=== PATIENT | male | born 1940 | race Hispanic/Latino ===

== ENCOUNTER 2018-05-29 12:19 | Inpatient (IN) | payer MEDICARE, OTHER ==
[2018-05-29 12:21] VITALS: BMI 27.3
[2018-05-29] MEDS ORDERED: Iodixanol 320 MG/ML 100 ML BOTTLE IV ONE (12:32)
--- NOTE | 2018-05-29 12:32 | ED PDOC ---
HPI:STROKE - Time Time: 12:30 - Historian Historian: EMS - Chief Complaint Chief Complaint: Weakness, Facial droop - Onset Date: 05/29/18 - TPA Positive for Contraindication: Yes Reason tPA is not being Administered: vague symptoms and resolved; Neurologist evaluated. - Notes: Notes:: 78 y/o male with a PMHx of a left sided CVA brought in by EMS for evaluation of a possible stroke. EMS report patient was at home when family noticed patient had developed a right sided facial droop associated with right sided weakness and slurred speach about 20 minutes prior to arrival. As per EMS who obtained information from state patient was last known well at baseline at 10 o'clock. At baseline, patient had normal speech. Otherwise, patient denies headache, nausea, dizziness, pain and any other associated symptoms. Additionally, vomitus noted to have been found by bedhead as per EMS. PMD: none provided NIHSS Stroke Scale - Date/Time Evaluation Performed Date Performed: 05/29/18 Time Performed: 12:30 When Was NIHSS Performed: Baseline - How Severe is the Stroke Level of Consciousness: 0=Alert LOC to Questions: 0=Both comments correct LOC to commands: 0=Obeys both correctly Best Gaze: 0=Normal Visual: 0=No visual loss Facial: 1=Minor asymmetry Motor Arm - Left: 1=Drift noted before 10 sec Motor Arm - Right: 1=Drift noted before 10 sec Motor Leg - Left: 2=Falls before 5 sec Motor Leg - Right: 2=Falls before 5 sec Limb Ataxia: 2=Present both Sensory: 0=Normal Best Language: 0=No aphasia Dysarthia: 1=Mild to moderate slurring Extinction & Inattention (Neglect): 0=Normal, no object Score: 10 rTPA Inclusion/Exclusion - Refusal of Treatment Patient Refused Treatment: No - Inclusion Criteria for Altepase Patient is 18 years or Older: Yes The Clinical Diagnosis of Ischemic Stroke That is Causing a Potentially Disabling Neurological Deficit: No Time of Onset is Well Established to be Less Than 270 Minute Before Treatment Would Begin: Yes Risk/Benefit Discussed With Patient/Family Member Present: No Past Medical History Reviewed: Nursing Documentation, Vital Signs Vital Signs: Last Vital Signs Temp 97.4 F L 05/29/18 12:21 Pulse 98 H 05/29/18 12:21 Resp 18 05/29/18 12:21 BP 101/50 L 05/29/18 12:21 Pulse Ox 100 05/29/18 12:21 - Medical History PMH: CAD, CVA, Diabetes, Gastritis, HTN, Hypercholesterolemia, Mitral Valve Prolapse, Parkinson's Disease, TIA Denies: Arthritis, CHF, COPD, HIV, Hypothyroidism, Chronic Kidney Disease, Rheumatoid Arthritis - Surgical History Surgical History: Appendectomy, Coronary Stent - Family History Family History: States: Unknown Family Hx - Home Medications Home Medications: Ambulatory Orders Medication Instructions Recorded Amoxicillin/Clavulanate [Augmentin 1 tab PO Q12 05/29/18 875 MG-125 MG Tab] Aspirin [Ecotrin] 81 mg PO DAILY 05/29/18 Atorvastatin Calcium [Lipitor] 80 mg PO HS 05/29/18 Benzonatate [Tessalon Perle] 100 mg PO Q8 PRN 05/29/18 Clopidogrel [Plavix] 75 mg PO DAILY 05/29/18 Ergocalciferol (Vitamin D2) 50,000 unit PO FR 05/29/18 [Vitamin D2] Famotidine [Pepcid] 20 mg PO DAILY 05/29/18 Lactulose [Generlac] 30 ml PO DAILY 05/29/18 Linaclotide [Linzess] 145 mcg PO DAILY 05/29/18 Metoprolol Succinate XL [Toprol XL] 50 mg PO Q12 05/29/18 Mirtazapine [Remeron] 15 mg PO HS 05/29/18 Ondansetron HCl [Zofran] 4 mg PO Q8 PRN 05/29/18 Tamsulosin [Flomax] 0.4 mg PO DAILY 05/29/18 - Allergies Allergies/Adverse Reactions: Allergies Allergy/AdvReac Type Severity Reaction Status Date / Time No Known Allergies Allergy Verified 05/29/18 12:21 Review of Systems ROS Statement: Except As Marked, All Systems Reviewed And Found Negative Neurological: Positive for: Weakness (RIGHT SIDED), Change in Speech, Other (RIGHT SIDED FACIAL DROOP) Physical Exam - Reviewed Nursing Documentation Reviewed: Yes Vital Signs Reviewed: Yes - Physical Exam Appears: Positive for: In Acute Distress Head Exam: Positive for: ATRAUMATIC, NORMOCEPHALIC Skin: Positive for: Normal Color, Warm, Dry Eye Exam: Positive for: Normal appearance, EOMI, PERRL ENT: Positive for: Normal ENT Inspection Neck: Positive for: Normal, Painless ROM, Supple Cardiovascular/Chest: Positive for: Regular Rate, Rhythm. Negative for: Murmur Respiratory: Positive for: Normal Breath Sounds. Negative for: Respiratory D istress Gastrointestinal/Abdominal: Positive for: Normal Exam, Soft. Negative for: Tenderness Back: Positive for: Normal Inspection. Negative for: L CVA Tenderness, R CVA Tenderness Extremity: Positive for: Normal ROM (Constricted at onset but able to move all extremities. ). Negative for: Tenderness, Pedal Edema, Deformity Neurological/Psych: Positive for: Awake, Alert, Normal Tone, Symmetric/Intact Strength (Strength in the Upper Extremities: 3/5 bilaterally, Strength in the Lower Extremity: 1/5 bilaterally), Oriented, bill of lading clerk II-XII (? droop right lower), Other (questionable change in speech. ). Negative for: Lethargic - Laboratory Results Result Diagrams: 05/29/18 12:54 05/29/18 12:54 Lab Results: no acute - ECG ECG: Positive for: Interpreted By Me, Viewed By Me ECG Rhythm: Positive for: Normal QRS, Normal ST Segment, Sinus Rhythm O2 Sat by Pulse Oximetry: 100 (RA) Pulse Ox Interpretation: Normal - Radiology X-Ray: Read By Radiologist X-Ray Interpretation: No Acute Disease - Progress ED Course And Treament: 1507: Spoke with Dr. Babb. Will admit. Medical Decision Making Medical Decision Making: Time: 1220 -- Code Stroke Activated overhead Time: 1226 Plan: -- Type and Screen -- CTA Head/Neck Code Stroke -- CT Head w/o Contrast (CODE STROKE) -- EKG -- CMP -- Hemoglobin A1C -- Lipid Panel -- Troponin I -- Stroke Team Consult -- CBC with Differentials -- PTT -- Prothrombin Time -- CXR Portable -- Sodium Chloride IV 100 mls/hr -- Senior Data Warehouse Developer -- IV Insertion -- Call Stroke Team Consult PRN -- ED Obtain Labs STAT -- Glucose, Blood, POC STAT -- Nurisng Swallow Screen STAT -- Vital Signs Q15MIN Time: 1228 -- Neurology here and aware of case. Time: 1236 PROCEDURE: CT HEAD WITHOUT CONTRAST. HISTORY: code stroke COMPARISON: Comparison made with prior MRI and CT scan brain dated 11/17/2014 and 02/20/2015 respectively... Correlation also made with concurrent CTA brain as well as prior MRI of the brain dated 11/17/2014. TECHNIQUE: Axial computed tomography images were obtained through the head/brain without intravenous contrast. Radiation dose: Total exam DLP = 1202.6 mGy-cm. This CT exam was performed using one or more of the following dose reduction techniques: Automated exposure control, adjustment of the mA and/or kV according to patient size, and/or use of iterative reconstruction technique. FINDINGS: HEMORRHAGE: No acute parenchymal, subarachnoid nor extra-axial hemorrhage. BRAIN: Moderate to fairly significant diffuse and confluent chronic periventricular white matter ischemic changes seen extending peripherally into the deep and subcortical white matter both cerebral hemispheres. There is also some extension of these changes into the white matter tracts of both basal nuclei. Scattered chronic bilateral basal nuclei lacunar type infarcts also felt be present. Note that the possibility of a small hyperacute infarct cannot be excluded on this exam. Redemonstrated is a soft tissue mass which is located in the sella turcica and has caused expansile changes of the surrounding bone. This lesion measures approximately 14 mm x 13 mm x 11.5 mm and most likely represents a pituitary adenoma.... Lesion is seen to better advantage on prior MRI brain Moderate to fairly significant central volume loss evidenced by disproportionate enlargement of the ventricles as compared sulci. Vascular calcifications both carotid siphons. VENTRICLES: No obstructive hydrocephalus CALVARIUM: Calvarium intact. PARANASAL SINUSES: Unremarkable as visualized. No significant inflammatory changes. MASTOID AIR CELLS: Unremarkable as visualized. No inflammatory changes. OTHER FINDINGS: None. IMPRESSION: Acute intracranial hemorrhage. Moderate to fairly significant diffuse and confluent chronic periventricular white matter ischemic changes seen extending peripherally into the deep and subcortical white matter both cerebral hemispheres. There is also some extension of these changes into the white matter tracts of both basal nuclei. Scattered chronic bilateral basal nuclei lacunar type infarcts also felt be present. Note that the possibility of a small hyperacute infarct cannot be excluded on this exam. Moderate to fairly significant central volume loss evidenced by disproportionate enlargement of the ventricles as compared sulci. Redemonstrated is a soft tissue mass density within the sella turcica consistent with a pituitary adenoma and seen to better advantage on MRI of the brain Findings discussed with Dr. Ochoa at 12:35 p.m. with written down and read back verification. Time: 1300 CTA RESULTS PROCEDURE: CT Angiography of the neck and brain HISTORY: Stroke evaluation COMPARISON: Comparison made with concurrent noncontrast CT scan TECHNIQUE: Contiguous axial images of the neck and brain were obtained from the level of the vertex of the skull to the superior mediastinum in the arteriographic phase of enhancement. Coronal and sagittal reformats or also generated. IV contrast dose: 99 cc Visipaque 320 contrast material. Radiation dose: Total exam DLP = 554.34 mGy-cm. This CT exam was performed using one or more of the following dose reduction techniques: Automated exposure control, adjustment of the mA and/or kV according to patient size, and/or use of iterative reconstruction technique. FINDINGS: Brain The aortic arch exhibits mild calcified atherosclerotic plaque though is otherwise widely patent. Similar calcified plaque changes are present at the origins of the great vessels although also patent. Common carotid arteries are patent throughout. Some very minor crescentic shaped calcifications seen at both carotid bifurcations without significant without evidence of occlusion or significant stenosis. No evidence of dissection The distal internal carotid arteries including the petrous, cavernous and supraclinoid segments are also patent however calcified plaque changes are patent although there are calcified plaque changes seen at the level of both cavernous and supraclinoid carotid arteries. The vertebral arteries are patent throughout left-sided which is much than the larger in caliber/more dominant than the right-sided. The right vertebral artery terminates in a right-sided posterior inferior cerebellar artery (PICA). The major branches of the [id number] are also patent with no evidence of large aneurysm nor vascular malformation. The mid to distal branches of the anterior middle and posterior cerebral ar teries and appear relatively symmetric. No evidence of vascular malformation. OTHER FINDINGS: Again noted is a presumed pituitary adenoma with associated expansile changes of the sella turcica IMPRESSION: No evidence of dissection or occlusion. Minor calcified plaque seen at the origins of the great vessels as well as both carotid bifurcations with no significant stenosis. There also calcified atherosclerotic plaque changes seen along right and left cavernous and supraclinoid segments of the internal carotid arteries. No evidence of occlusion of the visualized cerebral vasculature. Dominant left vertebral artery with hypoplastic right vertebral artery terminating in a right-sided PICA as above Time: 1331 CXR RESULTS HISTORY: Code Stroke COMPARISON: Comparison chest dated 02/21/2015 FINDINGS: LUNGS: Minor bibasilar atelectasis PLEURA: No significant pleural effusion identified, no pneumothorax apparent. CARDIOVASCULAR: Mild aortic atherosclerotic calcification present. Heart appears mildly enlarged. No pulmonary vascular congestion. OSSEOUS STRUCTURES: No significant abnormalities. VISUALIZED UPPER ABDOMEN: Normal. OTHER FINDINGS: None IMPRESSION: Minor bibasilar atelectasis Scribe Attestation: Documented by Gretta Simental, acting as a scribe forCan Ochoa MD. Provider Scribe Attestation: All medical record entries made by the Scribe were at my direction and personally dictated by me. I have reviewed the chart and agree that the record accurately reflects my personal performance of the history, physical exam, medical decision making, and the department course for this patient. I have also personally directed, reviewed, and agree with the discharge instructions and disposition. 1245: Dr. Wood saw pt. and reviewed case. No thrombolytics. Wants ASA and admit for CVA work up. AAOx3. Moving all extremities. Disposition - Clinical Impression Clinical Impression: CVA (cerebral vascular accident) - Patient ED Disposition Is Patient to be Admitted: Yes Counseled Patient/Family Regarding: Studies Performed, Diagnosis - Disposition Disposition Time: 13:00 Condition: FAIR - Pt Status Changed To: Hospital Disposition Of: Inpatient - Admit Certification Admit to Inpatient:: After my assessment, the patient will require hospitalization for at least two midnights. This is because of the severity of symptoms shown, intensity of services needed, and/or the medical risk in this patient being treated as an outpatient.
--- NOTE | 2018-05-29 12:47 | CT ---
Date of service: 05/29/2018 PROCEDURE: CT HEAD WITHOUT CONTRAST. HISTORY: code stroke COMPARISON: Comparison made with prior MRI and CT scan brain dated 11/17/2014 and 02/20/2015 respectively... Correlation also made with concurrent CTA brain as well as prior MRI of the brain dated 11/17/2014. TECHNIQUE: Axial computed tomography images were obtained through the head/brain without intravenous contrast. Radiation dose: Total exam DLP = 1202.6 mGy-cm. This CT exam was performed using one or more of the following dose reduction techniques: Automated exposure control, adjustment of the mA and/or kV according to patient size, and/or use of iterative reconstruction technique. FINDINGS: HEMORRHAGE: No acute parenchymal, subarachnoid nor extra-axial hemorrhage. BRAIN: Moderate to fairly significant diffuse and confluent chronic periventricular white matter ischemic changes seen extending peripherally into the deep and subcortical white matter both cerebral hemispheres. There is also some extension of these changes into the white matter tracts of both basal nuclei. Scattered chronic bilateral basal nuclei lacunar type infarcts also felt be present. Note that the possibility of a small hyperacute infarct cannot be excluded on this exam. Redemonstrated is a soft tissue mass which is located in the sella turcica and has caused expansile changes of the surrounding bone. This lesion measures approximately 14 mm x 13 mm x 11.5 mm and most likely represents a pituitary adenoma.... Lesion is seen to better advantage on prior MRI brain Moderate to fairly significant central volume loss evidenced by disproportionate enlargement of the ventricles as compared sulci. Vascular calcifications both carotid siphons. VENTRICLES: No obstructive hydrocephalus CALVARIUM: Calvarium intact. PARANASAL SINUSES: Unremarkable as visualized. No significant inflammatory changes. MASTOID AIR CELLS: Unremarkable as visualized. No inflammatory changes. OTHER FINDINGS: None. IMPRESSION: Acute intracranial hemorrhage. Moderate to fairly significant diffuse and confluent chronic periventricular white matter ischemic changes seen extending peripherally into the deep and subcortical white matter both cerebral hemispheres. There is also some extension of these changes into the white matter tracts of both basal nuclei. Scattered chronic bilateral basal nuclei lacunar type infarcts also felt be present. Note that the possibility of a small hyperacute infarct cannot be excluded on this exam. Moderate to fairly significant central volume loss evidenced by disproportionate enlargement of the ventricles as compared sulci. Redemonstrated is a soft tissue mass density within the sella turcica consistent with a pituitary adenoma and seen to better advantage on MRI of the brain Findings discussed with Dr. Ochoa at 12:35 p.m. with written down and read back verification.
--- NOTE | 2018-05-29 13:04 | CT ---
Date of service: 05/29/2018 PROCEDURE: CT Angiography of the neck and brain HISTORY: Stroke evaluation COMPARISON: Comparison made with concurrent noncontrast CT scan TECHNIQUE: Contiguous axial images of the neck and brain were obtained from the level of the vertex of the skull to the superior mediastinum in the arteriographic phase of enhancement. Coronal and sagittal reformats or also generated. IV contrast dose: 99 cc Visipaque 320 contrast material. Radiation dose: Total exam DLP = 554.34 mGy-cm. This CT exam was performed using one or more of the following dose reduction techniques: Automated exposure control, adjustment of the mA and/or kV according to patient size, and/or use of iterative reconstruction technique. FINDINGS: Brain The aortic arch exhibits mild calcified atherosclerotic plaque though is otherwise widely patent. Similar calcified plaque changes are present at the origins of the great vessels although also patent. Common carotid arteries are patent throughout. Some very minor crescentic shaped calcifications seen at both carotid bifurcations without significant without evidence of occlusion or significant stenosis. No evidence of dissection The distal internal carotid arteries including the petrous, cavernous and supraclinoid segments are also patent however calcified plaque changes are patent although there are calcified plaque changes seen at the level of both cavernous and supraclinoid carotid arteries. The vertebral arteries are patent throughout left-sided which is much than the larger in caliber/more dominant than the right-sided. The right vertebral artery terminates in a right-sided posterior inferior cerebellar artery (PICA). The major branches of the [id number] are also patent with no evidence of large aneurysm nor vascular malformation. The mid to distal branches of the anterior middle and posterior cerebral arteries and appear relatively symmetric. No evidence of vascular malformation. OTHER FINDINGS: Again noted is a presumed pituitary adenoma with associated expansile changes of the sella turcica IMPRESSION: No evidence of dissection or occlusion. Minor calcified plaque seen at the origins of the great vessels as well as both carotid bifurcations with no significant stenosis. There also calcified atherosclerotic plaque changes seen along right and left cavernous and supraclinoid segments of the internal carotid arteries. No evidence of occlusion of the visualized cerebral vasculature. Dominant left vertebral artery with hypoplastic right vertebral artery terminating in a right-sided PICA as above
[2018-05-29 13:07] LABS: BASO % 0.4 % (0.0-2.0); EOS # 0.2 K/uL (0.0-0.7); HEMOGLOBIN 11.3 g/dL (12.0-18.0); LYMPH # 1.2 K/uL (1.0-4.3); LYMPH % 24.5 % (20.0-40.0); MEAN CELL VOLUME 91.6 fl (80.0-94.0); MEAN CORPUSCULAR HEMOGLOBIN 30.7 pg (27.0-31.0); MEAN CORPUSCULAR HGB CONC 33.5 g/dL (33.0-37.0); MEAN PLATELET VOLUME 8.4 fl (7.2-11.7); MONO # 0.3 K/uL (0.0-0.8); MONO % 6.9 % (0.0-10.0); NEUT # 3.1 K/uL (1.8-7.0); NEUT % 63.2 % (50.0-75.0); NRBC % 0.1 % (0.0-0.0); RBC 3.7 Mil/uL (4.40-5.90); RED CELL DISTRIBUTION WIDTH 13.6 % (11.5-14.5); WHITE BLOOD COUNT 4.9 K/uL (4.8-10.8)
[2018-05-29 13:15] LABS: ALB/GLOB RATIO 0.9 (1.0-2.1); ALBUMIN 3.2 g/dL (3.5-5.0); ALT/SGPT 14 U/L (21-72); AST/SGOT 19 U/L (17-59); BLOOD UREA NITROGEN 15 mg/dl (9-20); CALCIUM 8.8 mg/dL (8.4-10.2); GFR NON-AFRICAN AMERICAN > 60; HDL CHOLESTEROL 26 MG/DL (30-70)
[2018-05-29 13:23] LABS: PROTHROMBIN TIME 11.3 Seconds (9.8-13.1)
[2018-05-29] MEDS: Sodium Chloride 0.9% 1,000 ML IV SCH (13:23)
[2018-05-29 13:25] LABS: LDL CHOLESTEROL 53 mg/dL (0-129)
--- NOTE | 2018-05-29 13:25 | CP.PCM.CON ---
History of Present Illness - History of Present Illness History of Present Illness: Neurology consult dictated. Patient is not a TPA candidate because his deficits resolved, and his NIH is now 1. Plan: 1. MRI Brain without contrast 2. aspirin and plavix. 3. IV normal saline 4. Neuro checks. 5. Admit to telemetry 6. PT ST OT DR. mccartney Neurology Past Patient History - Infectious Disease Hx of Infectious Diseases: None - Past Medical History & Family History Past Medical History?: Yes - Past Social History Smoking Status: Former Smoker - CARDIAC Hx Congestive Heart Failure: No Hx Hypercholesterolemia: Yes Hx Hypertension: Yes Hx Mitral Valve Prolapse: Yes - PULMONARY Hx Chronic Obstructive Pulmonary Disease (COPD): No - NEUROLOGICAL Hx Parkinson's Disease: Yes Hx Transient Ischemic Attacks (TIA): Yes - HEENT Hx HEENT Problems: No - RENAL Hx Chronic Kidney Disease: No - ENDOCRINE/METABOLIC Hx Hypothyroidism: No - HEMATOLOGICAL/ONCOLOGICAL Hx Human Immunodeficiency Virus (HIV): No - INTEGUMENTARY Hx Dermatological Problems: No - MUSCULOSKELETAL/RHEUMATOLOGICAL Hx Arthritis: No Hx Rheumatoid Arthritis: No - GASTROINTESTINAL Hx Gastritis: Yes - GENITOURINARY/GYNECOLOGICAL Hx Genitourinary Disorders: No - PSYCHIATRIC Hx Emotional Abuse: No Hx Physical Abuse: No Hx Substance Use: No - SURGICAL HISTORY Hx Appendectomy: Yes Hx Coronary Stent: Yes - ANESTHESIA Hx Anesthesia: Yes Hx Anesthesia Reactions: No Meds Allergies/Adverse Reactions: Allergies Allergy/AdvReac Type Severity Reaction Status Date / Time No Known Allergies Allergy Verified 05/29/18 12:21 - Medications Medications: Current Medications Sodium Chloride (Sodium Chloride 0.9%) 1,000 mls @ 100 mls/hr IV .Q10H TONY Last Admin: 05/29/18 13:23 Dose: 100 mls/hr Results - Vital Signs Recent Vital Signs: Last Vital Signs Temp 97.4 F L 05/29/18 12:21 Pulse 98 H 05/29/18 12:21 Resp 18 05/29/18 12:21 BP 101/50 L 05/29/18 12:21 Pulse Ox 100 05/29/18 12:45 - Labs Result Diagrams: 05/29/18 12:54 05/29/18 12:54 Labs: Laboratory Results - last 24 hr 05/29/18 05/29/18 05/29/18 12:54 12:54 12:54 WBC 4.9 RBC 3.70 L Hgb 11.3 L Hct 33.9 L MCV 91.6 MCH 30.7 MCHC 33.5 RDW 13.6 Plt Count 167 D MPV 8.4 Neut % (Auto) 63.2 Lymph % (Auto) 24.5 Haakon % (Auto) 6.9 Eos % (Auto) 5.0 H Baso % (Auto) 0.4 Neut # (Auto) 3.1 Lymph # (Auto) 1.2 Haakon # (Auto) 0.3 Eos # (Auto) 0.2 Baso # (Auto) 0.0 PT 11.3 INR 1.0 Sodium 142 Potassium 4.7 Chloride 105 Carbon Dioxide 30 Anion Gap 12 BUN 15 Creatinine 1.0 Est GFR ( Amer) > 60 Est GFR (Non-Af Amer) > 60 Random Glucose 124 H Calcium 8.8 Total Bilirubin 0.5 AST 19 ALT 14 L D Alkaline Phosphatase 60 Total Protein 6.5 Albumin 3.2 L D Globulin 3.3 Albumin/Globulin Ratio 0.9 L Triglycerides 132 D Cholesterol 105 HDL Cholesterol 26 L BBK History Checked 05/29/18 12:54 WBC RBC Hgb Hct MCV MCH MCHC RDW Plt Count MPV Neut % (Auto) Lymph % (Auto) Haakon % (Auto) Eos % (Auto) Baso % (Auto) Neut # (Auto) Lymph # (Auto) Haakon # (Auto) Eos # (Auto) Baso # (Auto) PT INR Sodium Potassium Chloride Carbon Dioxide Anion Gap BUN Creatinine Est GFR ( Amer) Est GFR (Non-Af Amer) Random Glucose Calcium Total Bilirubin AST ALT Alkaline Phosphatase Total Protein Albumin Globulin Albumin/Globulin Ratio Triglycerides Cholesterol HDL Cholesterol BBK History Checked No verified bt
--- NOTE | 2018-05-29 13:35 | RAD ---
Date of service: 05/29/2018 HISTORY: Code Stroke COMPARISON: Comparison chest dated 02/21/2015 FINDINGS: LUNGS: Minor bibasilar atelectasis PLEURA: No significant pleural effusion identified, no pneumothorax apparent. CARDIOVASCULAR: Mild aortic atherosclerotic calcification present. Heart appears mildly enlarged. No pulmonary vascular congestion. OSSEOUS STRUCTURES: No significant abnormalities. VISUALIZED UPPER ABDOMEN: Normal. OTHER FINDINGS: None IMPRESSION: Minor bibasilar atelectasis
--- NOTE | 2018-05-29 16:16 | CP.PCM.HP ---
History of Present Illness - History of Present Illness History of Present Illness: CC: Right Facial droop History of present illness A 78 y/o male with a PMHx of a left sided CVA brought in by EMS for evaluation of a possible stroke. EMS report patient was at home when family noticed patient had developed a right sided facial droop associated with right sided weakness and slurred speach about 20 minutes prior to arrival. As per EMS who obtained information from state patient was last known well at baseline at 10 o'clock. At baseline, patient had normal speech. Otherwise, patient denies headache, nausea, dizziness, pain and any other associated symptoms. Additionally, vomit noted to have been found by bedhead as per EMS. Neurologist evaluated the patient in the ER and recommended admission, treatment and workup for stroke with MRI brain. Present on Admission - Present on Admission Any Indicators Present on Admission: No Review of Systems - Review of Systems All systems: reviewed and no additional remarkable complaints except Review of Systems: as per HPI Past Patient History - Infectious Disease Hx of Infectious Diseases: None - Past Medical History & Family History Past Medical History?: Yes Past Family History: Reviewed and not pertinent - Past Social History Smoking Status: Former Smoker Alcohol: None Drugs: Denies - CARDIAC Hx Congestive Heart Failure: No Hx Hypercholesterolemia: Yes Hx Hypertension: Yes Hx Mitral Valve Prolapse: Yes - PULMONARY Hx Chronic Obstructive Pulmonary Disease (COPD): No - NEUROLOGICAL Hx Parkinson's Disease: Yes Hx Transient Ischemic Attacks (TIA): Yes - HEENT Hx HEENT Problems: No - RENAL Hx Chronic Kidney Disease: No - ENDOCRINE/METABOLIC Hx Hypothyroidism: No - HEMATOLOGICAL/ONCOLOGICAL Hx Human Immunodeficiency Virus (HIV): No - INTEGUMENTARY Hx Dermatological Problems: No - MUSCULOSKELETAL/RHEUMATOLOGICAL Hx Arthritis: No Hx Rheumatoid Arthritis: No - GASTROINTESTINAL Hx Gastritis: Yes - GENITOURINARY/GYNECOLOGICAL Hx Genitourinary Disorders: No - PSYCHIATRIC Hx Emotional Abuse: No Hx Physical Abuse: No Hx Substance Use: No - SURGICAL HISTORY Hx Appendectomy: Yes Hx Coronary Stent: Yes - ANESTHESIA Hx Anesthesia: Yes Hx Anesthesia Reactions: No Meds Allergies/Adverse Reactions: Allergies Allergy/AdvReac Type Severity Reaction Status Date / Time No Known Allergies Allergy Verified 05/29/18 12:21 Physical Exam - Constitutional Appears: Well, No Acute Distress - Head Exam Head Exam: ATRAUMATIC, NORMAL INSPECTION, NORMOCEPHALIC - Eye Exam Eye Exam: EOMI, Normal appearance, PERRL Pupil Exam: NORMAL ACCOMODATION, PERRL - ENT Exam ENT Exam: Mucous Membranes Moist, Normal Exam - Neck Exam Neck exam: Positive for: Normal Inspection - Respiratory Exam Respiratory Exam: Clear to Auscultation Bilateral, NORMAL BREATHING PATTERN - Cardiovascular Exam Cardiovascular Exam: REGULAR RHYTHM, +S1, +S2 - GI/Abdominal Exam GI & Abdominal Exam: Normal Bowel Sounds, Soft. absent: Tenderness - Extremities Exam Extremities exam: Positive for: normal capillary refill (Known cervical), normal inspection - Back Exam Back exam: NORMAL INSPECTION - Neurological Exam Neurological exam: Alert, CN II-XII Intact, Normal Gait, Oriented x3, Reflexes Normal - Psychiatric Exam Psychiatric exam: Normal Affect, Normal Mood - Skin Skin Exam: Dry, Intact, Normal Color, Warm Results - Vital Signs Recent Vital Signs: Last Vital Signs Temp 97.4 F L 05/29/18 12:21 Pulse 73 05/29/18 14:50 Resp 18 05/29/18 14:50 BP 143/78 05/29/18 14:50 Pulse Ox 100 05/29/18 15:07 - Labs Result Diagrams: 05/29/18 12:54 05/29/18 12:54 Labs: Laboratory Results - last 24 hr 05/29/18 05/29/18 05/29/18 12:54 12:54 12:54 WBC 4.9 RBC 3.70 L Hgb 11.3 L Hct 33.9 L MCV 91.6 MCH 30.7 MCHC 33.5 RDW 13.6 Plt Count 167 D MPV 8.4 Neut % (Auto) 63.2 Lymph % (Auto) 24.5 [place] % (Auto) 6.9 Eos % (Auto) 5.0 H Baso % (Auto) 0.4 Neut # (Auto) 3.1 Lymph # (Auto) 1.2 [place] # (Auto) 0.3 Eos # (Auto) 0.2 Baso # (Auto) 0.0 PT 11.3 INR 1.0 APTT 33.0 Sodium 142 Potassium 4.7 Chloride 105 Carbon Dioxide 30 Anion Gap 12 BUN 15 Creatinine 1.0 Est GFR ( Amer) > 60 Est GFR (Non-Af Amer) > 60 Random Glucose 124 H Calcium 8.8 Total Bilirubin 0.5 AST 19 ALT 14 L D Alkaline Phosphatase 60 Troponin I < 0.0120 Total Protein 6.5 Albumin 3.2 L D Globulin 3.3 Albumin/Globulin Ratio 0.9 L Triglycerides 132 D Cholesterol 105 LDL Cholesterol Direct 53 HDL Cholesterol 26 L Blood Type Blood Type Confirm Antibody Screen BBK History Checked 05/29/18 05/29/18 12:54 13:40 WBC RBC Hgb Hct MCV MCH MCHC RDW Plt Count MPV Neut % (Auto) Lymph % (Auto) [place] % (Auto) Eos % (Auto) Baso % (Auto) Neut # (Auto) Lymph # (Auto) [place] # (Auto) Eos # (Auto) Baso # (Auto) PT INR APTT Sodium Potassium Chloride Carbon Dioxide Anion Gap BUN Creatinine Est GFR ( Amer) Est GFR (Non-Af Amer) Random Glucose Calcium Total Bilirubin AST ALT Alkaline Phosphatase Troponin I Total Protein Albumin Globulin Albumin/Globulin Ratio Triglycerides Cholesterol LDL Cholesterol Direct HDL Cholesterol Blood Type A POSITIVE Blood Type Confirm A POSITIVE Antibody Screen Negative BBK History Checked No verified bt - Imaging and Cardiology CT scan - head Status: Report reviewed by me Additional comment: Date of service: 05/29/2018 PROCEDURE: CT HEAD WITHOUT CONTRAST. HISTORY: code stroke COMPARISON: Comparison made with prior MRI and CT scan brain dated 11/17/2014 and 02/20/2015 respectively... Correlation also made with concurrent CTA brain as well as prior MRI of the brain dated 11/17/2014. TECHNIQUE: Axial computed tomography images were obtained through the head/brain without intravenous contrast. Radiation dose: Total exam DLP = 1202.6 mGy-cm. This CT exam was performed using one or more of the following dose reduction techniques: Automated exposure control, adjustment of the mA and/or kV according to patient size, and/or use of iterative reconstruction technique. FINDINGS: HEMORRHAGE: No acute parenchymal, subarachnoid nor extra-axial hemorrhage. BRAIN: Moderate to fairly significant diffuse and confluent chronic periventricular wh ite matter ischemic changes seen extending peripherally into the deep and subcortical white matter both cerebral hemispheres. There is also some extension of these changes into the white matter tracts of both basal nuclei. Scattered chronic bilateral basal nuclei lacunar type infarcts also felt be present. Note that the possibility of a small hyperacute infarct cannot be excluded on this exam. Redemonstrated is a soft tissue mass which is located in the sella turcica and has caused expansile changes of the surrounding bone. This lesion measures approximately 14 mm x 13 mm x 11.5 mm and most likely represents a pituitary adenoma.... Lesion is seen to better advantage on prior MRI brain Moderate to fairly significant central volume loss evidenced by disproportionate enlargement of the ventricles as compared sulci. Vascular calcifications both carotid siphons. VENTRICLES: No obstructive hydrocephalus CALVARIUM: Calvarium intact. PARANASAL SINUSES: Unremarkable as visualized. No significant inflammatory changes. MASTOID AIR CELLS: Unremarkable as visualized. No inflammatory changes. OTHER FINDINGS: None. IMPRESSION: Acute intracranial hemorrhage. Moderate to fairly significant diffuse and confluent chronic periventricular white matter ischemic changes seen extending peripherally into the deep and subcortical white matter both cerebral hemispheres. There is also some extension of these changes into the white matter tracts of both basal nuclei. Scattered chronic bilateral basal nuclei lacunar type infarcts also felt be present. Note that the possibility of a small hyperacute infarct cannot be excluded on this exam. Moderate to fairly significant central volume loss evidenced by disproportionate enlargement of the ventricles as compared sulci. Redemonstrated is a soft tissue mass density within the sella turcica consistent with a pituitary adenoma and seen to better advantage on MRI of the brain CT Angio and Neck: Status: Report reviewed by me Additional comment: Date of service: 05/29/2018 PROCEDURE: CT Angiography of the neck and brain HISTORY: Stroke evaluation COMPARISON: Comparison made with concurrent noncontrast CT scan TECHNIQUE: Contiguous axial images of the neck and brain were obtained from the level of the vertex of the skull to the superior mediastinum in the arteriographic phase of enhancement. Coronal and sagittal reformats or also generated. IV contrast dose: 99 cc Visipaque 320 contrast material. Radiation dose: Total exam DLP = 554.34 mGy-cm. This CT exam was performed using one or more of the following dose reduction techniques: Automated exposure control, adjustment of the mA and/or kV according to patient size, and/or use of iterative reconstruction technique. FINDINGS: Brain The aortic arch exhibits mild calcified atherosclerotic plaque though is otherwise widely patent. Similar calcified plaque changes are present at the origins of the great vessels although also patent. Common carotid arteries are patent throughout. Some very minor crescentic shaped calcifications seen at both carotid bifurcations without significant without evidence of occlusion or significant stenosis. No evidence of dissection The distal internal carotid arteries including the petrous, cavernous and supraclinoid segments are also patent however calcified plaque changes are patent although there are calcified plaque changes seen at the level of both cavernous and supraclinoid carotid arteries. The vertebral arteries are patent throughout left-sided which is much than the larger in caliber/more dominant than the right-sided. The right vertebral artery terminates in a right-sided posterior inferior cerebellar artery (PICA). The major branches of the [id number] are also patent with no evidence of large aneurysm nor vascular malformation. The mid to distal branches of the anterior middle and posterior cerebral a rteries and appear relatively symmetric. No evidence of vascular malformation. OTHER FINDINGS: Again noted is a presumed pituitary adenoma with associated expansile changes of the sella turcica IMPRESSION: No evidence of dissection or occlusion. Minor calcified plaque seen at the origins of the great vessels as well as both carotid bifurcations with no significant stenosis. There also calcified atherosclerotic plaque changes seen along right and left cavernous and supraclinoid segments of the internal carotid arteries. No evidence of occlusion of the visualized cerebral vasculature. Chest x-ray Status: Report reviewed by me Additional comment: Date of service: 05/29/2018 HISTORY: Code Stroke COMPARISON: Comparison chest dated 02/21/2015 FINDINGS: LUNGS: Minor bibasilar atelectasis PLEURA: No significant pleural effusion identified, no pneumothorax apparent. CARDIOVASCULAR: Mild aortic atherosclerotic calcification present. Heart appears mildly enlarged. No pulmonary vascular congestion. OSSEOUS STRUCTURES: No significant abnormalities. VISUALIZED UPPER ABDOMEN: Normal. OTHER FINDINGS: None IMPRESSION: Minor bibasilar atelectasis Assessment & Plan (1) CVA (cerebral vascular accident) Status: Acute Priority: Medium (2) S/P AVR Status: Acute (3) CAD (coronary artery disease) Status: Chronic (4) Diabetes mellitus Status: Chronic (5) Hyperlipidemia Status: Chronic (6) Hypertension Status: Chronic (7) Morbid obesity Status: Chronic (8) Unsteady gait Status: Chronic - Assessment and Plan (Free Text) Plan: ASA/Plavix MRI Brain TTE Neurocheck q4hrs Neurology Consulted
[2018-05-29] MEDS ORDERED: Glucagon Recombinant 1 mg Inj IM PRN (18:55)
[2018-05-29] MEDS ORDERED: Dextrose 50% SYRINGE Inj (50 ml) IV PRN (18:55)
[2018-05-29] MEDS: Amoxicillin-Clav 875-125 mg Tab PO SCH ×2 (21:58→22:12)
[2018-05-29] MEDS ORDERED: Insulin Lispro (humaLOG) 100 Units/ml Inj SC SCH (22:00)
--- NOTE | 2018-05-29 22:22 | CARD ---
APPROVED REPORT Date of service: 05/29/2018 EKG Measurement Heart [id number] <Conclusion> Normal sinus rhythm Possible Left atrial enlargement Septal infarct, age undetermined Abnormal ECG
[2018-05-30] MEDS: Sodium Chloride 0.9% 1,000 ML IV SCH ×3 (00:11→23:13)
--- NOTE | 2018-05-30 01:11 | CON ---
DATE: 05/29/[address] Can Ochoa. HISTORY OF PRESENT ILLNESS: Mr. Varun Alatorre came in as a code stroke. On initial presentation, NIH stroke scale was 10. This is an 78-year-old male with past medical history of left-sided stroke several years ago, not a tPA candidate as his deficits resolved. Initially, the patient came in with dysarthria and right-sided facial droop, which resolved within the last one hour presenting to the emergency room. At home, the patient was noted to have a right-sided weakness and slurred speech 20 minutes prior to arrival to the ER. EMS confirmed this. He was last done well at 10 o'clock. The patient normally is able to name, repeat, and is quite functional, and does not have any weakness. When I examined him, NIH stroke scale actually had decreased to 1. He was not considered a tPA candidate. REVIEW OF SYSTEMS: There is no headache, nausea, vomiting, or diarrhea. Exam is conducted in Nepalese. He is able to follow commands well, name and repeat. PAST MEDICAL HISTORY: CAD, CVA, diabetes, gastritis, hypertension, hypercholesterolemia, MVP, Parkinson's, and TIA. PAST SURGICAL HISTORY: Appendectomy, coronary stent. HOME MEDICATIONS: Imitrex, Celexa, Plavix, Senokot, Lantus, Enulose, milk of magnesia, metoprolol, Diovan, . ALLERGIES: NO KNOWN DRUG ALLERGIES. PHYSICAL EXAMINATION: GENERAL: He is awake, alert, and oriented x2. He struggled with the date. Speech was fluent, although it is slow. There was no dysarthria appreciated by myself. HEENT: EOMI. Visual haynes full. NEUROLOGIC: Cranial nerves II through XII are normal. The patient was able to name and repeat in Nepalese, but not in Austrian as he is Nepalese speaking only. There was no dysarthria noted. Strength was 5/5 in upper and lower limbs bilaterally. There was no decrease in fine touch, pin, or position signs. Gait was not tested. Reflexes are +2 in upper and lower limbs bilaterally. Cerebellar, [id number] shows no dysmetria. There was bilateral drifts. LABORATORY DATA: Labs are as follows. Hematology: CBC was normal. Chemistry was normal except for random glucose of 124. ALT 14, albumin 3.2. Triglycerides were all normal except for HDL of 626. CAT scan of the head demonstrated normal. CT of the head was done as well, which shows the following; no evidence of dissection or occlusion, minor calcified clots seen at the origin of the great vessel, dominant left vertebral artery. IMPRESSION: This is an 78-year-old male who most likely had a left basal ganglia, transient ischemic attack. At present, his [employer] stroke scale is 1. PLAN: 1. MRI of the brain without contrast. 2. Admitted to telemetry. 3. Aspirin and Plavix. 4. IV normal saline 100 mL per hour. PT, SGOT. Our team will follow. Thank you for this interesting consult. Citlaly Wood MD
[2018-05-30] MEDS: Amoxicillin-Clav 875-125 mg Tab PO SCH ×4 (11:06→23:03)
[2018-05-30] MEDS: Enoxaparin 40 mg Syringe SC SCH ×2 (11:07→13:04)
--- NOTE | 2018-05-30 13:46 | MRI ---
Date of service: 05/30/2018 PROCEDURE: MRI BRAIN WITHOUT CONTRAST HISTORY: CVA COMPARISON: Comparison made with CT scan and CTA brain both dated 05/29/2018. Comparison also made with prior MRI of the brain 11/17/2014 TECHNIQUE: Multiplanar, multisequence MR images of the brain were obtained without intravenous contrast enhancement. FINDINGS: Study is limited by motion artifact HEMORRHAGE: No acute parenchymal, subarachnoid or extra-axial hemorrhage. No evidence of hemosiderin deposition identified on gradient echo weighted sequence. DWI: No evidence of an acute or early subacute infarction seen on diffusion imaging. BRAIN PARENCHYMA: Moderate to fairly significant chronic periventricular white matter ischemic changes are again seen extending peripherally into the deep and subcortical white matter both cerebral hemispheres.. Changes also extend into the white matter tracts of both superior basal ganglia as well as coronal radiata and centrum semiovale. Multiple dilated perivascular spaces are seen within both basal nuclei some of which probably represent few tiny chronic lacunar type infarcts.. There are also mild disc chronic ischemic changes within the brainstem and both cerebellar hemispheres. Also again seen is a intrasellar soft tissue mass measuring approximately 13.4 x 12.2 mm most likely representing a pituitary adenoma and essentially unchanged from prior MRI of the brain VENTRICLES: There is enlargement of the entire ventricular system felt to be secondary to central volume loss with ex vacuo dilatation. CRANIUM: Unremarkable. ORBITS: Changes of bilateral cataract surgery again noted. Or PARANASAL SINUSES/MASTOIDS: Clear VASCULAR SYSTEM: Visualized major vascular flow voids at skull base patent. OTHER FINDINGS: None. IMPRESSION: Limited motion degraded study. No evidence of acute intracranial hemorrhage or infarction. Mild moderate to fairly significant chronic white matter ischemic changes with scattered bilateral basal nuclei bilateral cerebellar and brainstem ischemic changes. Moderate to significant central volume loss. Stable appearing intrasellar mass likely representing pituitary adenoma essentially unchanged from prior MRI of the brain 11/17/2014
--- NOTE | 2018-05-30 15:00 | CARD ---
APPROVED REPORT Date of service: 05/30/2018 EXAM: Two-dimensional and M-mode echocardiogram with Doppler and color Doppler. Other Information Quality : FairRhythm : NSR Technically limited study due to body habitus. INDICATION CVA/TIA 2D DIMENSIONS IVSd1.15 (0.7-1.1cm)LVDd4.02 (3.9-5.9cm) LVOT Diameter1.59 (1.8-2.4cm)PWd1.33 (0.7-1.1cm) IVSs1.68 (0.8-1.2cm)LVDs2.75 (2.5-4.0cm) FS (%) 31.6 %PWs1.81 (0.8-1.2cm) SV17.15 mlLVEF (%)55.4 (>50%) CO1.19 L/min M-Mode DIMENSIONS Left Atrium (MM)5.33 (2.5-4.0cm)Aortic Root2.15 (2.2-3.7cm) Aortic Valve AoV Peak Lefgnymi675.8cm/sAoV VTI66.5cmAO Peak GR.52mmHg LVOT Peak Meewqvla37.8cm/sLVOT VTI19.11cmAO Mean GR.26mmHg SCARLET (VMAX)0.36zt9RIW (VTI)0.29cm2 Mitral Valve MV E Qegxeklr98.6cm/sMV DECEL [id number] E/A ratio0.0MVA (PHT)1.89cm2 TDI Lateral E' Peak V5.08cm/sMedial E' Peak V5.67cm/sE/Lateral E'17.4 E/Medial E'15.6 LEFT VENTRICLE The left ventricle is normal size. There is normal left ventricular wall thickness. The left ventricular systolic function is normal. The estimated ejection fraction is 60-65% No regional wall motion abnormalities noted.. Transmitral Doppler flow pattern is Grade I-abnormal relaxation pattern. No left ventricle thrombus noted on this study. There is no ventricular septal defect visualized. There is no left ventricular aneurysm. There is no mass noted in the left ventricle. RIGHT VENTRICLE The right ventricle is normal size. There is normal right ventricular wall thickness. The right ventricular systolic function is normal. ATRIA The left atrium is severely dilated. The right atrium size is normal. The interatrial septum is intact with no evidence for an atrial septal defect. AORTIC VALVE The aortic valve is severely calcified. Mild aortic regurgitation is present. There is likely severe aortic valvular stenosis. Peak aortic velocity is 3.9 m/sec. Correlate clinically. There is no aortic valvular vegetation. MITRAL VALVE The mitral valve is normal in structure. There is no evidence of mitral valve prolapse. There is no mitral valve stenosis. There is no mitral valve regurgitation noted. TRICUSPID VALVE The tricuspid valve is normal in structure. There is no tricuspid valve regurgitation noted. There is no tricuspid valve prolapse or vegetation. There is no tricuspid valve stenosis. PULMONIC VALVE The pulmonary valve is normal in structure. There is no pulmonic valvular regurgitation. There is no pulmonic valvular stenosis. GREAT VESSELS The aortic root is normal in size. The ascending aorta is normal in size. The pulmonary artery is normal. The IVC is normal in size and collapses >50% with inspiration. PERICARDIAL EFFUSION There is no pericardial effusion. There is no pleural effusion. <Conclusion> Technically difficult study The estimated ejection fraction is 60-65% Transmitral Doppler flow pattern is Grade I-abnormal relaxation pattern. The left atrium is severely dilated. Mild aortic regurgitation is present. There is likely severe aortic valvular stenosis. Peak aortic velocity is 3.9 m/sec. Correlate clinically.
--- NOTE | 2018-05-31 04:18 | CP.PCM.PN ---
Subjective - Date & Time of Evaluation Date of Evaluation: 05/30/18 Objective - Vital Signs/Intake and Output Vital Signs (last 24 hours): Temp Pulse Resp BP Pulse Ox 98.7 F 65 17 145/79 95 05/31/18 00:33 05/31/18 00:33 05/31/18 00:33 05/31/18 00:33 05/31/18 00:33 - Medications Medications: Current Medications Amoxicillin/Clavulanate Potassium (Augmentin 875 Mg-125 Mg Tab) 1 tab PO Q12 [facility]; Protocol Last Admin: 05/30/18 23:03 Dose: Not Given Aspirin (Ecotrin) 81 mg PO DAILY [facility] Last Admin: 05/30/18 11:54 Dose: Not Given Atorvastatin Calcium (Lipitor) 80 mg PO HS [facility] Last Admin: 05/30/18 23:03 Dose: Not Given Benzonatate (Tessalon Perles) 100 mg PO Q8 PRN PRN Reason: Cough Clopidogrel Bisulfate (Plavix) 75 mg PO DAILY [facility] Last Admin: 05/30/18 11:56 Dose: Not Given Dextrose (Dextrose 50% Inj) 0 ml IV STAT PRN; Protocol PRN Reason: Hypoglycemia Protocol Dextrose (Glutose 15) 0 gm PO ONCE PRN; Protocol PRN Reason: Hypoglycemia Protocol Enoxaparin Sodium (Lovenox) 40 mg SC DAILY [facility]; Protocol Last Admin: 05/30/18 13:04 Dose: 40 mg Famotidine (Pepcid) 20 mg PO DAILY [facility] Last Admin: 05/30/18 11:56 Dose: Not Given Glucagon (Glucagen Diagnostic Kit) 0 mg IM STAT PRN; Protocol PRN Reason: Hypoglycemia Protocol Home Med (Linaclotide [Linzess]) 145 mcg PO DAILY [facility] Sodium Chloride (Sodium Chloride 0.9%) 1,000 mls @ 100 mls/hr IV .Q10H [facility] Last Admin: 05/30/18 23:13 Dose: 100 mls/hr Mirtazapine (Remeron) 15 mg PO HS [facility] Last Admin: 05/30/18 23:02 Dose: Not Given Ondansetron HCl (Zofran Tab) 4 mg PO Q8 PRN PRN Reason: Nausea/Vomiting Tamsulosin HCl (Flomax) 0.4 mg PO DAILY [facility] Last Admin: 05/30/18 11:55 Dose: Not Given - Labs Labs: 05/29/18 12:54 05/29/18 12:54 PT 11.3 Seconds (9.8-13.1) 05/29/18 12:54 INR 1.0 05/29/18 12:54 APTT 33.0 Seconds (25.6-37.1) 05/29/18 12:54 Assessment and Plan (1) CVA (cerebral vascular accident) Status: Acute (2) S/P AVR Status: Acute (3) CAD (coronary artery disease) Status: Chronic (4) Diabetes mellitus Status: Chronic (5) Hyperlipidemia Status: Chronic (6) Hypertension Status: Chronic (7) Morbid obesity Status: Chronic (8) Unsteady gait Status: Chronic
[2018-05-31] MEDS: Amoxicillin-Clav 875-125 mg Tab PO SCH ×2 (11:24→21:20)
[2018-05-31] MEDS: Enoxaparin 40 mg Syringe SC SCH (11:30)
--- NOTE | 2018-05-31 14:21 | CP.PCM.PN ---
Subjective - Date & Time of Evaluation Date of Evaluation: 05/31/18 Objective - Vital Signs/Intake and Output Vital Signs (last 24 hours): Temp Pulse Resp BP Pulse Ox 98.2 F 67 20 139/77 92 L 05/31/18 12:59 05/31/18 12:59 05/31/18 12:59 05/31/18 12:59 05/31/18 12:59 - Medications Medications: Current Medications Amoxicillin/Clavulanate Potassium (Augmentin 875 Mg-125 Mg Tab) 1 tab PO Q12 [facility]; Protocol Last Admin: 05/31/18 11:24 Dose: Not Given Aspirin (Ecotrin) 81 mg PO DAILY [facility] Last Admin: 05/31/18 11:24 Dose: Not Given Atorvastatin Calcium (Lipitor) 80 mg PO HS [facility] Last Admin: 05/30/18 23:03 Dose: Not Given Benzonatate (Tessalon Perles) 100 mg PO Q8 PRN PRN Reason: Cough Clopidogrel Bisulfate (Plavix) 75 mg PO DAILY [facility] Last Admin: 05/31/18 11:25 Dose: Not Given Dextrose (Dextrose 50% Inj) 0 ml IV STAT PRN; Protocol PRN Reason: Hypoglycemia Protocol Dextrose (Glutose 15) 0 gm PO ONCE PRN; Protocol PRN Reason: Hypoglycemia Protocol Enoxaparin Sodium (Lovenox) 40 mg SC DAILY [facility]; Protocol Last Admin: 05/31/18 11:30 Dose: 40 mg Famotidine (Pepcid) 20 mg PO DAILY [facility] Last Admin: 05/31/18 11:25 Dose: Not Given Glucagon (Glucagen Diagnostic Kit) 0 mg IM STAT PRN; Protocol PRN Reason: Hypoglycemia Protocol Home Med (Linaclotide [Linzess]) 145 mcg PO DAILY [facility] Sodium Chloride (Sodium Chloride 0.9%) 1,000 mls @ 100 mls/hr IV .Q10H [facility] Last Admin: 05/30/18 23:13 Dose: 100 mls/hr Mirtazapine (Remeron) 15 mg PO HS [facility] Last Admin: 05/30/18 23:02 Dose: Not Given Ondansetron HCl (Zofran Tab) 4 mg PO Q8 PRN PRN Reason: Nausea/Vomiting Tamsulosin HCl (Flomax) 0.4 mg PO DAILY [facility] Last Admin: 05/31/18 11:25 Dose: Not Given - Labs Labs: 05/29/18 12:54 05/29/18 12:54 PT 11.3 Seconds (9.8-13.1) 05/29/18 12:54 INR 1.0 05/29/18 12:54 APTT 33.0 Seconds (25.6-37.1) 05/29/18 12:54 Assessment and Plan (1) CVA (cerebral vascular accident) Status: Acute (2) S/P AVR Status: Acute (3) CAD (coronary artery disease) Status: Chronic (4) Diabetes mellitus Status: Chronic (5) Hyperlipidemia Status: Chronic (6) Hypertension Status: Chronic (7) Morbid obesity Status: Chronic (8) Unsteady gait Status: Chronic
[2018-05-31] MEDS: Sodium Chloride 0.9% 1,000 ML IV SCH ×2 (18:44)
[2018-06-01] MEDS: Sodium Chloride 0.9% 1,000 ML IV SCH (00:35)
[2018-06-01] MEDS: Enoxaparin 40 mg Syringe SC SCH (08:46)
[2018-06-01] MEDS: Amoxicillin-Clav 875-125 mg Tab PO SCH ×2 (08:46→22:19)
[2018-06-01 12:23] LABS: HEMOGLOBIN 11.2 g/dL (12.0-18.0); MEAN CELL VOLUME 90.7 fl (80.0-94.0); MEAN CORPUSCULAR HEMOGLOBIN 30.3 pg (27.0-31.0); MEAN CORPUSCULAR HGB CONC 33.5 g/dL (33.0-37.0); RBC 3.68 Mil/uL (4.40-5.90); RED CELL DISTRIBUTION WIDTH 13.6 % (11.5-14.5); WHITE BLOOD COUNT 4.6 K/uL (4.8-10.8)
[2018-06-01 12:32] LABS: BLOOD UREA NITROGEN 11 mg/dl (9-20); CALCIUM 8.6 mg/dL (8.4-10.2); GFR NON-AFRICAN AMERICAN > 60
--- NOTE | 2018-06-01 12:37 | CP.PCM.PN ---
Subjective - Date & Time of Evaluation Date of Evaluation: 06/01/18 Time of Evaluation: 12:35 - Subjective Subjective: Neuro Follow-Up: Mr. Alatorre was evaluated this afternoon at bedside. No family present. Pt denies any complaints today and states that he feels fine. He has not had any repeated episodes of dysarthria or unilateral weakness. He does note decreased strength to both legs though. Denies h/a, dizziness, visual changes, chest pain, palpitations, sob, cough, abd pain, n/v/d, paresthesias. Objective - Vital Signs/Intake and Output Vital Signs (last 24 hours): Temp Pulse Resp BP Pulse Ox 97.5 F L 68 20 136/77 99 06/01/18 08:26 06/01/18 08:26 06/01/18 08:26 06/01/18 08:26 06/01/18 08:26 - Medications Medications: Current Medications Amoxicillin/Clavulanate Potassium (Augmentin 875 Mg-125 Mg Tab) 1 tab PO Q12 [facility]; Protocol Last Admin: 06/01/18 08:46 Dose: 1 tab Aspirin (Ecotrin) 81 mg PO DAILY [facility] Last Admin: 06/01/18 08:46 Dose: 81 mg Atorvastatin Calcium (Lipitor) 80 mg PO HS [facility] Last Admin: 05/31/18 21:19 Dose: 80 mg Benzonatate (Tessalon Perles) 100 mg PO Q8 PRN PRN Reason: Cough Clopidogrel Bisulfate (Plavix) 75 mg PO DAILY [facility] Last Admin: 06/01/18 08:46 Dose: 75 mg Dextrose (Dextrose 50% Inj) 0 ml IV STAT PRN; Protocol PRN Reason: Hypoglycemia Protocol Dextrose (Glutose 15) 0 gm PO ONCE PRN; Protocol PRN Reason: Hypoglycemia Protocol Enoxaparin Sodium (Lovenox) 40 mg SC DAILY [facility]; Protocol Last Admin: 06/01/18 08:46 Dose: 40 mg Famotidine (Pepcid) 20 mg PO DAILY [facility] Last Admin: 06/01/18 08:46 Dose: 20 mg Glucagon (Glucagen Diagnostic Kit) 0 mg IM STAT PRN; Protocol PRN Reason: Hypoglycemia Protocol Home Med (Linaclotide [Linzess]) 145 mcg PO DAILY [facility] Mirtazapine (Remeron) 15 mg PO HS [facility] Last Admin: 05/31/18 21:20 Dose: 15 mg Ondansetron HCl (Zofran Tab) 4 mg PO Q8 PRN PRN Reason: Nausea/Vomiting Tamsulosin HCl (Flomax) 0.4 mg PO DAILY [facility] Last Admin: 06/01/18 08:45 Dose: 0.4 mg - Labs Labs: 06/01/18 11:11 06/01/18 11:50 PT 11.3 Seconds (9.8-13.1) 05/29/18 12:54 INR 1.0 05/29/18 12:54 APTT 33.0 Seconds (25.6-37.1) 05/29/18 12:54 - Constitutional Appears: Well, Non-toxic, No Acute Distress - Head Exam Head Exam: ATRAUMATIC, NORMAL INSPECTION, NORMOCEPHALIC - Eye Exam Eye Exam: EOMI, Normal appearance, PERRL Pupil Exam: NORMAL ACCOMODATION, PERRL - ENT Exam ENT Exam: Mucous Membranes Moist - Neck Exam Neck Exam: Full ROM, Normal Inspection - Respiratory Exam Respiratory Exam: NORMAL BREATHING PATTERN - Extremities Exam Extremities Exam: absent: Calf Tenderness, Full ROM, Pedal Edema Additional comments: Decreased ROM to BLE, unable to raise them off the bed - Neurological Exam Neurological Exam: Alert, Awake, CN II-XII Intact, Reflexes Normal. absent: Oriented x3 Neuro motor strength exam: Left Upper Extremity: 5 (deputy sheriff/investigator 5/5), Right Upper Extremity: 5 (deputy sheriff/investigator 5/5), Left Lower Extremity: 2/1 (plantar flexion 3/5), Right Lower Extremity: 2/1 (planatr flexion 3/5) Additional comments: Speech clear, though slow to respond to questions. No facial droop noted FROM to BUE Weakness and decreased ROM noted to BLE 2/2 deconditioning No dysmetria No tremors or abnormal movements Toes down going b/l - Psychiatric Exam Psychiatric exam: Normal Affect, Normal Mood - Skin Skin Exam: Normal Color Assessment and Plan (1) TIA (transient ischemic attack) Assessment & Plan: Imaging reviewed: -MRI Brain (05/29/18): Limited motion degraded study. No evidence of acute intracranial hemorrhage or infarction. Mild moderate to fairly significant chronic white matter ischemic changes with scattered bilateral basal nuclei bilateral cerebellar and brainstem ischemic changes. Moderate to significant central volume loss. Stable appearing intrasellar mass likely representing pituitary adenoma essentially unchanged from prior MRI of the brain 11/17/2014 -CTA Head and Neck (05/29/18): No evidence of dissection or occlusion. Minor calcified plaque seen at the origins of the great vessels as well as both carotid bifurcations with no significant stenosis. There also calcified atherosclerotic plaque changes seen along right and left cavernous and supraclinoid segments of the internal carotid arteries. No evidence of occlusion of the visualized cerebral vasculature. Dominant left vertebral artery with hypoplastic right vertebral artery terminating in a right-sided PICA as above. -Continue ASA, Plavix, Statin. -Continue PT/OT. -NIH today 6 2/2 weakness in BLE. -Recommend rehab upon d/c. -Follow up as outpatient with neuro and PMD once d/c from rehab. No further recommendations. Reconsult prn. Brenda Mcelroy DNP, CLERK RATING Discussed with Dr. Calzada Status: Acute NIHSS Stroke Scale - Date/Time Evaluation Performed Date Performed: 06/01/18 Time Performed: 12:35 When Was NIHSS Performed: Re-evaluation - How Severe is the Stroke Level of Consciousness: 0=Alert LOC to Questions: 0=Both comments correct LOC to commands: 0=Obeys both correctly Best Gaze: 0=Normal Visual: 0=No visual loss Facial: 0=Normal Motor Arm - Left: 0=No drift Motor Arm - Right: 0=No drift Motor Leg - Left: 3=No effort against gravity (falls immediately) Motor Leg - Right: 3=No effort against gravity (falls immediately) Limb Ataxia: 0=Absent Sensory: 0=Normal Best Language: 0=No aphasia Dysarthia: 0=Normal articulation Extinction & Inattention (Neglect): 0=Normal, no object Score: 6
[2018-06-02] MEDS: Amoxicillin-Clav 875-125 mg Tab PO SCH (09:03)
[2018-06-02] MEDS: Sodium Chloride 0.9% 1,000 ML IV SCH (09:05)
[2018-06-02] MEDS: Enoxaparin 40 mg Syringe SC SCH (10:23)
[2018-06-02 16:45] VITALS: BP 117/70; PULSE 88; RESP 18; TEMP 98.3; O2SAT 94
--- NOTE | 2018-06-02 18:30 | CP.PCM.PN ---
Subjective - Date & Time of Evaluation Date of Evaluation: 06/01/18 Objective - Vital Signs/Intake and Output Vital Signs (last 24 hours): Temp Pulse Resp BP Pulse Ox 98.3 F 88 18 117/70 94 L 06/02/18 16:00 06/02/18 16:00 06/02/18 16:00 06/02/18 16:00 06/02/18 16:00 - Labs Labs: 06/01/18 11:11 06/01/18 11:50 PT 11.3 Seconds (9.8-13.1) 05/29/18 12:54 INR 1.0 05/29/18 12:54 APTT 33.0 Seconds (25.6-37.1) 05/29/18 12:54 Assessment and Plan (1) CVA (cerebral vascular accident) Status: Acute (2) S/P AVR Status: Acute (3) CAD (coronary artery disease) Status: Chronic (4) Diabetes mellitus Status: Chronic (5) Hyperlipidemia Status: Chronic (6) Hypertension Status: Chronic (7) Morbid obesity Status: Chronic (8) Unsteady gait Status: Chronic
--- NOTE | 2018-06-02 18:32 | CP.PCM.DIS ---
Provider - Provider Date of Admission: 05/29/18 14:22 Attending physician: Emanuel Babb MD Consults: 05/29/18 12:26 Stroke Team Consult Stat Comment: Consulting Provider: Neurohospitalist Consulting Physician: NEUROHOSP Neurohospitalist for Consult: Rolando Calzada Neurohospitalist for Consult: Citlaly Wood Reason for Consult: stroke eval 05/29/18 23:13 Nursing Referral for Wound Care Routine Comment: Physician Instructions: Reason For Exam: healing sacral ulcer? Time Spent in preparation of Discharge (in minutes): 25 Diagnosis - Discharge Diagnosis (1) CVA (cerebral vascular accident) Status: Ruled-out Priority: Medium Comment: Ruled out (2) S/P AVR Status: Acute (3) CAD (coronary artery disease) Status: Chronic (4) Diabetes mellitus Status: Chronic (5) Hyperlipidemia Status: Chronic (6) Hypertension Status: Chronic (7) Morbid obesity Status: Chronic (8) Unsteady gait Status: Chronic (9) Generalized muscle weakness Status: Acute (10) Aortic stenosis, severe Status: Acute Hospital Course - Lab Results Lab Results: Most Recent Lab Values WBC 4.6 K/uL (4.8-10.8) L 06/01/18 11:11 RBC 3.68 Mil/uL (4.40-5.90) L 06/01/18 11:11 Hgb 11.2 g/dL (12.0-18.0) L 06/01/18 11:11 Hct 33.3 % (35.0-51.0) L 06/01/18 11:11 MCV 90.7 fl (80.0-94.0) 06/01/18 11:11 MCH 30.3 pg (27.0-31.0) 06/01/18 11:11 MCHC 33.5 g/dL (33.0-37.0) 06/01/18 11:11 RDW 13.6 % (11.5-14.5) 06/01/18 11:11 Plt Count 182 K/uL (130-400) 06/01/18 11:11 MPV 8.4 fl (7.2-11.7) 05/29/18 12:54 Neut % (Auto) 63.2 % (50.0-75.0) 05/29/18 12:54 Lymph % (Auto) 24.5 % (20.0-40.0) 05/29/18 12:54 Mower % (Auto) 6.9 % (0.0-10.0) 05/29/18 12:54 Eos % (Auto) 5.0 % (0.0-4.0) H 05/29/18 12:54 Baso % (Auto) 0.4 % (0.0-2.0) 05/29/18 12:54 Neut # (Auto) 3.1 K/uL (1.8-7.0) 05/29/18 12:54 Lymph # (Auto) 1.2 K/uL (1.0-4.3) 05/29/18 12:54 Mower # (Auto) 0.3 K/uL (0.0-0.8) 05/29/18 12:54 Eos # (Auto) 0.2 K/uL (0.0-0.7) 05/29/18 12:54 Baso # (Auto) 0.0 K/uL (0.0-0.2) 05/29/18 12:54 PT 11.3 Seconds (9.8-13.1) 05/29/18 12:54 INR 1.0 05/29/18 12:54 APTT 33.0 Seconds (25.6-37.1) 05/29/18 12:54 Sodium 139 mmol/l (132-148) 06/01/18 11:50 Potassium 3.9 MMOL/L (3.6-5.0) 06/01/18 11:50 Chloride 106 mmol/L (98-107) 06/01/18 11:50 Carbon Dioxide 27 mmol/L (22-30) 06/01/18 11:50 Anion Gap 10 (10-20) 06/01/18 11:50 BUN 11 mg/dl (9-20) 06/01/18 11:50 Creatinine 0.9 mg/dl (0.8-1.5) 06/01/18 11:50 Est GFR ( Amer) > 60 06/01/18 11:50 Est GFR (Non-Af Amer) > 60 06/01/18 11:50 POC Glucose (mg/dL) 119 mg/dL (65-110) H 06/02/18 16:14 Random Glucose 110 mg/dL (75-110) 06/01/18 11:50 Hemoglobin A1c 5.1 % (4.2-6.5) 05/29/18 12:54 Calcium 8.6 mg/dL (8.4-10.2) 06/01/18 11:50 Total Bilirubin 0.5 mg/dl (0.2-1.3) 05/29/18 12:54 AST 19 U/L (17-59) 05/29/18 12:54 ALT 14 U/L (21-72) L D 05/29/18 12:54 Alkaline Phosphatase 60 U/L (38-126) 05/29/18 12:54 Troponin I < 0.0120 ng/mL (0.00-0.120) 05/29/18 12:54 Total Protein 6.5 G/DL (6.3-8.2) 05/29/18 12:54 Albumin 3.2 g/dL (3.5-5.0) L D 05/29/18 12:54 Globulin 3.3 gm/dL (2.2-3.9) 05/29/18 12:54 Albumin/Globulin Ratio 0.9 (1.0-2.1) L 05/29/18 12:54 Triglycerides 132 mg/DL (0-149) D 05/29/18 12:54 Cholesterol 105 mg/dL (0-199) 05/29/18 12:54 LDL Cholesterol Direct 53 mg/dL (0-129) 05/29/18 12:54 HDL Cholesterol 26 MG/DL (30-70) L 05/29/18 12:54 Blood Type A POSITIVE 05/29/18 12:54 Blood Type Confirm A POSITIVE 05/29/18 13:40 Antibody Screen Negative 05/29/18 12:54 BBK History Checked No verified bt 05/29/18 12:54 Discharge Exam - Head Exam Head Exam: ATRAUMATIC, NORMAL INSPECTION, NORMOCEPHALIC Discharge Plan - Discharge Medications Prescriptions: Amoxicillin/Clavulanate [Augmentin 875 MG-125 MG Tab] 1 tab PO Q12 #6 tab - Follow Up Plan Condition: FAIR Disposition: HOME/ ROUTINE Instructions: Stroke (DC) Additional Instructions: [facility] visiting nurse [phone] follow up with in 1 week physical therapy to be done by tara. Referrals: Ramón Chen MD [Medical Doctor] - Emanuel Babb MD [Staff Provider] -
--- NOTE | 2018-06-10 12:37 | PQF ---
PROVIDER RESPONSE TEXT: TIA REVIEWER QUERY TEXT: Conflicting Documentation Clarification Please clarify the diagnosis: CVA versus TIA versus Acute Intracranial Hemorrhage as per CT report -- Versus Other explanation of clinical findings: please specify 05/29 CT Head: Impression: Acute intracranial hemorrhage.Moderate to fairly significant diffuse and co nfluent chronic periventricular white matter ischemic changes seen extending peripherally into the de ep and subcortical white matter both cerebral hemispheres.There is also some extension of these donnelly ges into the white matter tracts of both basal nuclei.Scattered chronic bilateral basal nuclei lacuna r type infarcts also felt be present.Note that the possibility of a small hyperacute infarct cannot b e excluded on this exam.Moderate to fairly significant central volume loss evidenced by disproportio darrin enlargement of the ventricles as compared sulci.Redemonstrated is soft tissue mass density withi n the sella turcica consistent with a pituitary adenoma and seen to better advantage on MRI of the b rain 05/30 MRI: Limited motion degraded study.No evidence of acute intracranial hemorrhage or infarction.Mi ld moderate to fairly significant chronic white matter ischemic changes with scattered bilateral basa l nuclei bilateral cerebellar and brainstem ischemic changes.Moderate to significant central volume loss.Stable appearing intrasell ar mass likely representing pituitary adenoma essentially unchanged from prior MRI of the brain 11/17 H and P includes: (1) CVA (cerebral vascular accident) Status: Acute Priority: Medium 05/29 Neuro consult;Initially, the patient came in with dysarthria and right-sided facial droop, which resolved within the last one hour presenting to the emergency room.-- This is an 78-year-old male wh o most likely had a left basal ganglia, transient ischemic attack.At present, his [employer] stroke scale is 1. The patient's Clinical Indicators include: --- Query created by: Kimberly Kirkpatrick on 06/01/2018 12:49 PM Electronically signed by: Emanuel Babb MD 06/10/2018 12:33 PM
--- NOTE | 2018-06-10 12:37 | PQF ---
PROVIDER RESPONSE TEXT: Agree BMI 28.6 REVIEWER QUERY TEXT: Clarification of Clinical Diagnostic Findings Please clarify if you arein agreement with the the BMI listed in the EMR:BMI28.6 OR: Disagree: and please include the BMI OR: Other explanation of clinical findings Listed in the EMR: 5ft 8in 188lbs BMI:28.6 H and P includes a dx. : (7) Morbid obesity Status: Chronic The patient's Clinical Indicators include: ---- Query created by: Kimberly Kirkpatrick on 06/01/2018 12:14 PM Electronically signed by: Emanuel Babb MD 06/10/2018 12:33 PM
== END 2018-06-02 16:30 | disposition home health service (06) | DRG 69 ==
LOC: H.ER 12:19 → H.ERHOLD 14:22 → H.TEL 18:15
PROVIDERS: ADMIT Internal Medicine; ATTEND Internal Medicine
DX: G45.8 Other transient cerebral ischemic attacks and related syndromes (principal); E11.9 Type 2 diabetes mellitus without complications; G20 Parkinson's disease; D35.2 Benign neoplasm of pituitary gland; Z95.2 Presence of prosthetic heart valve; R29.710 NIHSS score 10; I25.10 Atherosclerotic heart disease of native coronary artery without angina pectoris; Z95.5 Presence of coronary angioplasty implant and graft; Z86.73 Personal history of transient ischemic attack (TIA), and cerebral infarction without residual deficits; Z79.02 Long term (current) use of antithrombotics/antiplatelets; Z79.82 Long term (current) use of aspirin; R29.810 Facial weakness; Z87.891 Personal history of nicotine dependence; K29.70 Gastritis, unspecified, without bleeding; I10 Essential (primary) hypertension; E78.00 Pure hypercholesterolemia, unspecified; E78.5 Hyperlipidemia, unspecified; R26.81 Unsteadiness on feet; R47.1 Dysarthria and anarthria; M62.81 Muscle weakness (generalized)